=== PATIENT | female | born 1950 | race Caucasian/White ===

== ENCOUNTER 2018-04-16 06:12 | Day surgery (SDC) | payer OTHER ==
[~2018-04-16] VITALS: Ht 157.5 cm; Wt 103.4 kg
[~2018-04-16 06:12] MED LIST: AMLO5 PO; ATOR20 PO; CHLO25B PO; Curcumin1 GM PO; DULO60 PO; Excedrin Extra1 EACH PO; FENOFIBRATE40 MG PO; LOSA25 PO; METF500C PO; Novolog100 UNIT/1 SC; PROBIOTIC1 EAC3 PO; TRULICITY1.5 MG/0.5 SC; [UNRECOGNIZED DRUG - OTHER] PO
[2018-04-16] MEDS ORDERED: INSU100I6 SC (06:52)
[2018-04-16] MEDS ORDERED: INS70/30I SC (06:52)
[2018-04-17 04:40] LABS: BASOPHILS ABSOLUTE AUTO 0.02 K/mm3 (0.00-0.23); BASOPHILS PERCENT AUTO 0 % (0-2); EOSINOPHILS ABSOLUTE AUTO 0.19 K/mm3 (0.00-0.68); EOSINOPHILS PERCENT AUTO 2 % (0-6); Hematocrit 30.7 % (33.0-51.0); Hemoglobin 9.6 g/dL (11.5-16.0); IMMATURE GRAN ABSOLUTE AUTO 0.04 K/mm3 (0.00-0.10); IMMATURE GRAN PERCENT AUTO 0 % (0-1); LYMPHOCYTES ABSOLUTE AUTO 2.27 K/mm3 (0.84-5.20); LYMPHOCYTES PERCENT AUTO 19 % (21-46); MONOCYTES ABSOLUTE AUTO 0.85 K/mm3 (0.16-1.47); MONOCYTES PERCENT AUTO 7 % (4-13); Mean Corpuscular HGB 26.9 pg (26.0-34.0); Mean Corpuscular HGB Conc 31.3 g/dL (31.5-36.5); Mean Corpuscular Volume 86 fL (80-100); Mean Platelet Volume 9.5 fL (9.1-12.4); NEUTROPHILS ABSOLUTE AUTO 8.46 K/mm3 (1.96-9.15); NEUTROPHILS PERCENT AUTO 72 % (41-73); Platelet Count 263 K/mm3 (150-400); RDW Coefficient Variation 13.4 % (11.7-14.2); RDW Standard Deviation 42.3 fL (35.1-46.3); Red Blood Cell Count 3.57 M/mm3 (3.80-5.20); White Blood Cell Count 11.83 K/mm3 (4.00-11.30)
[2018-04-17 04:57] LABS: Anion Gap 8 mmol/L (6-16); Blood Urea Nitrogen 33 mg/dL (8-24); Bun/Creatinine Ratio 38.5 (12.0-20.0); CO2, Blood 27 mmol/L (21-32); Calcium, Blood 9.1 mg/dL (8.5-10.1); Chloride, Blood 102 mmol/L (98-108); Creatinine, Blood 0.86 mg/dL (0.40-1.00); Glomerular Filtration Rate >60 (60-); Glucose, Blood 118 mg/dL (70-99); Potassium, Blood 3.8 mmol/L (3.5-5.5); Sodium, Blood 137 mmol/L (136-145)
[2018-04-17] MEDS ORDERED: XARELTO10 MG PO (08:36)
[2018-04-17] MEDS ORDERED: Percocet 5-3251 EACH PO (08:40)
== END 2018-04-17 15:18 | disposition home or self-care (01) ==
LOC: ORSCMMR 06:12 → ORD 07:30 → SURS 10:36 → ORSCMMR 04-17 15:18
PROVIDERS: Orthopaedic Surgery
PROC: 0SRC0JA Replacement of Right Knee Joint with Synthetic Substitute, Uncemented, Open Approach (ICD-10-PCS; principal; 2018-04-16 07:30)
DX: M17.11 Unilateral primary osteoarthritis, right knee (principal); I10 Essential (primary) hypertension; G47.33 Obstructive sleep apnea (adult) (pediatric); Z87.891 Personal history of nicotine dependence; K21.9 Gastro-esophageal reflux disease without esophagitis; E11.9 Type 2 diabetes mellitus without complications; E66.01 Morbid (severe) obesity due to excess calories; Z68.41 Body mass index [BMI] 40.0-44.9, adult; Z79.899 Other long term (current) drug therapy
CPT/HCPCS: 36415; 73560-RT; 80048; 82947; 85025; 86850; 86870; 86900; 86901; 94762; 97110; 97116; 97150; 97162; C1776; G8978; G8979; J0171; J0330; J0690; J0735; J1815; J1885; J2250; J2405; J2550; J2765; J2795; J3010; J7120

== ENCOUNTER 2018-08-21 11:38 | Day surgery (SDC) | payer OTHER ==
[~2018-08-21] VITALS: Ht 157.5 cm; Wt 103.7 kg
[~2018-08-21 11:38] MED LIST changes: +INS70/30I SC; +INSU100I6 SC; +Percocet 5-3251 EACH PO; +XARELTO10 MG PO
[2018-08-21] MEDS ORDERED: FENOFIBRATE40 MG (12:19)
[2018-08-21] MEDS ORDERED: CHOL10002 (12:27)
[2018-08-21] MEDS ORDERED: ESOM20 (12:27)
[2018-08-21] MEDS ORDERED: UBID10 (12:27)
[2018-08-21] MEDS ORDERED: CYAN500 (12:27)
[2018-08-21] MEDS ORDERED: Hair, Skin & N1 EACH (12:27)
== END 2018-08-21 13:51 | disposition home or self-care (01) ==
LOC: ORSCSDS 11:38
PROVIDERS: Internal Medicine Gastroenterology
PROC: 0DB58ZX Excision of Esophagus, Via Natural or Artificial Opening Endoscopic, Diagnostic (ICD-10-PCS; principal; 2018-08-21 13:00)
DX: K22.70 Barrett's esophagus without dysplasia (principal); K44.9 Diaphragmatic hernia without obstruction or gangrene; G47.33 Obstructive sleep apnea (adult) (pediatric); I10 Essential (primary) hypertension; E11.9 Type 2 diabetes mellitus without complications; Z68.41 Body mass index [BMI] 40.0-44.9, adult; Z87.891 Personal history of nicotine dependence; Z79.82 Long term (current) use of aspirin; Z79.84 Long term (current) use of oral hypoglycemic drugs; Z79.4 Long term (current) use of insulin; Z79.899 Other long term (current) drug therapy
CPT/HCPCS: 82947; 88305; J7120

== ENCOUNTER → 2019-05-06 | Outpatient (CLI) | payer OTHER ==
[~2019-05-06] MED LIST changes: +CHOL10002; +CYAN500; +ESOM20; +FENOFIBRATE40 MG; +Hair, Skin & N1 EACH; +UBID10
[2019-05-06 18:01] LABS: Hematocrit 33.9 % (33.0-51.0); Hemoglobin 10.6 g/dL (11.5-16.0); Mean Corpuscular HGB 26.5 pg (26.0-34.0); Mean Corpuscular HGB Conc 31.3 g/dL (31.5-36.5); Mean Corpuscular Volume 85 fL (80-100); Mean Platelet Volume 10.3 fL (9.1-12.4); Platelet Count 322 K/mm3 (150-400); RDW Standard Deviation 43.3 fL (35.1-46.3)
[2019-05-08 01:06] LABS: HBSAG SCREEN Negative (Negative); HEP B CORE AB, TOT Negative (Negative); HEP C VIRUS AB <0.1 (0.0-0.9)
== END | disposition home or self-care (01) ==
LOC: LAB 14:00 → LAB SHORT 14:00
PROVIDERS: Internal Medicine
DX: Z11.59 Encounter for screening for other viral diseases (principal); E11.65 Type 2 diabetes mellitus with hyperglycemia; D50.8 Other iron deficiency anemias
CPT/HCPCS: 83036; 85027; 86704; 86708; 86803; 87340

== ENCOUNTER 2021-06-23 16:45 | Inpatient (IN) | payer OTHER ==
[~2021-06-23] VITALS: Ht 157.5 cm; Wt 107.6 kg
[2021-06-23 17:09] LABS: BASOPHILS ABSOLUTE AUTO 0.04 K/mm3 (0.00-0.23); BASOPHILS PERCENT AUTO 0 % (0-2); EOSINOPHILS ABSOLUTE AUTO 0.18 K/mm3 (0.00-0.68); EOSINOPHILS PERCENT AUTO 2 % (0-6); Hematocrit 35.2 % (33.0-51.0); Hemoglobin 11.2 g/dL (11.5-16.0); IMMATURE GRAN PERCENT AUTO 1 % (0-1); LYMPHOCYTES ABSOLUTE AUTO 2.63 K/mm3 (0.84-5.20); LYMPHOCYTES PERCENT AUTO 22 % (21-46); MONOCYTES ABSOLUTE AUTO 0.76 K/mm3 (0.16-1.47); MONOCYTES PERCENT AUTO 6 % (4-13); Mean Corpuscular HGB 27.5 pg (26.0-34.0); Mean Corpuscular HGB Conc 31.8 g/dL (31.5-36.5); Mean Corpuscular Volume 87 fL (80-100); Mean Platelet Volume 9.5 fL (9.1-12.4); NEUTROPHILS ABSOLUTE AUTO 8.38 K/mm3 (1.96-9.15); NEUTROPHILS PERCENT AUTO 69 % (41-73); Platelet Count 353 K/mm3 (150-400); RDW Standard Deviation 43.6 fL (35.1-46.3); Red Blood Cell Count 4.07 M/mm3 (3.80-5.20); White Blood Cell Count 12.09 K/mm3 (4.00-11.30)
[2021-06-23 17:28] LABS: Alanine Aminotransfer (ALT/SGP 38 U/L (12-78); Albumin, Blood 3.7 g/dL (3.4-5.0); Albumin/Globulin Ratio 0.9 (0.8-1.8); Alk Phos 77 U/L (50-136); Anion Gap 6 mmol/L (6-16); Aspartate Aminotrans (AST/SGOT 27 U/L (12-37); Bilirubin, Total 0.3 mg/dL (0.1-1.0); Blood Urea Nitrogen 24 mg/dL (8-24); Bun/Creatinine Ratio 27.7 (12.0-20.0); CO2, Blood 23 mmol/L (21-32); Calcium, Blood 9.8 mg/dL (8.5-10.1); Chloride, Blood 109 mmol/L (98-108); Creatinine, Blood 0.87 mg/dL (0.40-1.00); Glomerular Filtration Rate >60 (60-); Glucose, Blood 240 mg/dL (70-99); Sodium, Blood 138 mmol/L (136-145); Total Protein, Blood 7.7 g/dL (6.4-8.2)
[2021-06-23 18:24] LABS: International Normalized Ratio 1.02; Prothrombin Time Results 10.7 Sec (9.7-11.5)
[2021-06-23] MEDS ORDERED: EUTHYROX25 MCG PO (19:33)
[2021-06-23] MEDS ORDERED: MIRALAX17 GM PO (19:34)
[2021-06-23] MEDS ORDERED: POTA10T PO (19:35)
[2021-06-23] MEDS ORDERED: SENNA LAXATIVE8.6 MG PO (19:35)
[2021-06-23] MEDS ORDERED: QUET25 PO (19:35)
[2021-06-23] MEDS ORDERED: FENO160 PO (19:38)
[2021-06-23] MEDS ORDERED: AMLODIPINE BESY10 MG PO (19:38)
[2021-06-23] MEDS ORDERED: LIPITOR80 MG PO (19:38)
[2021-06-23] MEDS ORDERED: NEURONTIN300 MG PO (19:38)
[2021-06-23] MEDS ORDERED: LOSA50 PO (19:39)
[2021-06-23] MEDS ORDERED: NOVOLIN 70100 UNIT/3 SC (19:39)
[2021-06-23] MEDS ORDERED: METFORMIN HCL500 M3 PO (19:40)
[2021-06-23] MEDS ORDERED: TRULICITY4.5 MG/0.5 SC (19:40)
[2021-06-23] MEDS ORDERED: LOSARTAN POTAS100 M1 PO (19:44)
[2021-06-23 20:56] LABS: SARS-Cov-2 (COVID-19) PCR, MMC NEGATIVE (NEGATIVE)
--- NOTE | 2021-06-23 23:36 | NUR ---
PATIENT IS A NEW ADMIT FROM THE ED. ARRIVED VIA GURNEY AND SBA TRANSFER TO BED. ON ROOM AIR WITH SLURRED SPEECH/RS-FACIAL DROOP. DENIES CHEST PAIN, SOB, AND N/V. TELEMETRY PLACED AND TECH REPORTS NSR 88. HEAT AND VENT AIRCRAFT MECHANIC STRONG AND EQUAL. PUPILS EQUAL AND REACTIVE. LEG PEDAL PUSH/PULL STRONG AND EQUAL. PATIENT ORIENTED TO ROOM AND CALL LIGHT SYSTEM. REPORTS LIVES ALONE WITH DOGS IN [facility] IN [place].
--- NOTE | 2021-06-24 00:01 | NUR ---
RT NOTIFIED PATIENT USES CPAP THROUGH ORDER.
--- NOTE | 2021-06-24 03:28 | NUR ---
SHIFT SUMMARY PATIENT HAD NO ACUTE CHANGES OBSERVED. AXOX 4 WITH SLURRED SPEECH AND SLIGHT LS FACIAL DROOP. SBA TO BR. DENIES PAIN, SOB, AND N/V. ON ROOM AIR. MOVES ALL EXTREMITIES WELL. USING CPAP AT NIGHT SETUP BY RT. PIV REMAINS INTACT. PATIENT FINANCIAL SERVICES COORDINATOR REPORTS NSR 88. COOPERATIVE WITH CARE. ABLE TO SLEEP AFTER WATCHING TV. CALL LIGHT IN REACH. BED IN LOWEST POSITION. WILL CONTINUE TO MONITOR UNTIL DAY SHIFT NURSE ASSUMES CARE.
[2021-06-24 05:21] LABS: BASOPHILS ABSOLUTE AUTO 0.04 K/mm3 (0.00-0.23); BASOPHILS PERCENT AUTO 0 % (0-2); EOSINOPHILS ABSOLUTE AUTO 0.19 K/mm3 (0.00-0.68); EOSINOPHILS PERCENT AUTO 2 % (0-6); Hematocrit 34.3 % (33.0-51.0); IMMATURE GRAN ABSOLUTE AUTO 0.06 K/mm3 (0.00-0.10); IMMATURE GRAN PERCENT AUTO 1 % (0-1); LYMPHOCYTES ABSOLUTE AUTO 3.19 K/mm3 (0.84-5.20); LYMPHOCYTES PERCENT AUTO 25 % (21-46); MONOCYTES PERCENT AUTO 8 % (4-13); Mean Corpuscular HGB 27.5 pg (26.0-34.0); Mean Corpuscular HGB Conc 32.1 g/dL (31.5-36.5); Mean Corpuscular Volume 86 fL (80-100); Mean Platelet Volume 9.4 fL (9.1-12.4); NEUTROPHILS PERCENT AUTO 65 % (41-73); Platelet Count 315 K/mm3 (150-400); RDW Standard Deviation 43.3 fL (35.1-46.3); White Blood Cell Count 12.78 K/mm3 (4.00-11.30)
[2021-06-24 05:50] LABS: Alanine Aminotransfer (ALT/SGP 32 U/L (12-78); Albumin, Blood 3.4 g/dL (3.4-5.0); Albumin/Globulin Ratio 0.9 (0.8-1.8); Alk Phos 66 U/L (50-136); Anion Gap 5 mmol/L (6-16); Aspartate Aminotrans (AST/SGOT 19 U/L (12-37); Bilirubin, Total 0.3 mg/dL (0.1-1.0); Blood Urea Nitrogen 19 mg/dL (8-24); Bun/Creatinine Ratio 24.5 (12.0-20.0); CHOL/HDL RATIO 5.9; CO2, Blood 25 mmol/L (21-32); Calcium, Blood 9.4 mg/dL (8.5-10.1); Chloride, Blood 108 mmol/L (98-108); Cholesterol 182 mg/dL (50-200); Creatinine, Blood 0.78 mg/dL (0.40-1.00); Globulin, Blood 3.8 g/dL (2.2-4.0); Glomerular Filtration Rate >60 (60-); Glucose, Blood 196 mg/dL (70-99); HDL Cholesterol 31 mg/dL (>39); Low Density Lipoprotein Chol 94 mg/dL (0-110); Potassium, Blood 3.8 mmol/L (3.5-5.5); Sodium, Blood 138 mmol/L (136-145); Total Protein, Blood 7.2 g/dL (6.4-8.2); Triglycerides 286 mg/dL (30-160); Very Low Density Lipoprot Chol 57 mg/dL (6-32)
--- NOTE | 2021-06-24 11:31 | NUR ---
Patient is lying in bed and alert. Patient immediately tells me that she is scared and worried. Scared about what is happening to her physically (and the unknowns associated with that) and worried about what it might mean for her life (independence, sense of self and financially). Patient is tearful at times. She tells me about her support system of her sister (who lives in [place] who has come here to help her today), her son (who is a [employer] in the [employer] [facility] [employer]) and her two very large dogs. We also discuss her Jew shefali and the strength that she gains from it. I reinforce helpful attitudes and practices, normalize her experience and provide therapeutic listening and prayer. Patient responds well and shows signs of increased peace. I will continue to remain available to patient and family.
--- NOTE | 2021-06-24 18:42 | NUR ---
PATIENT IS ALERT AND ORIENTED X 4. REPORTS CHRONIC PAIN AND TX WITH GABAPENTIN. TYLENOL GIVEN X 1. SHE IS CALM AND VERY PLEASANT. SHE IS INDEPENDENT WITH ACTIVITIES. SHE HAS SOME SLURRED SPEECH AND TROUBLE FORMULATING HER WORDS AT TIME. MRI AND CT COMPLETED TODAY. PT IS NOT IN ACUTE DISTRESS. THIS SHIFT HAS BEEN UNEVENTFUL.
--- NOTE | 2021-06-25 04:03 | NUR ---
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 HEAD CT, HEAD MRI, CAROTID ART DUPLEX. 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 PT HAS INTENTION TREMORS PER HER REPORT SINCE AGE 12. pt ON PLAVIX BABY ASA LOVENOX ANTICOAGULANT.NO RT ARM OR LEG WEAKNESS. SLIGHT RT FACIAL DROOP, MILD WORD FINDING DIFFICULTY. CLEARED FOR ADA DIET BY SPEECH THERAPY. UP INDEP IN ROOM. USING HOSPITAL CPAP AT HS. ON TELE NSR. ON 70/30 INSULIN , TAKES WEEKLY ULTRA LONG ACTING ANTIDIABETIC AGENT SQ AT HOME.
[2021-06-25 05:08] LABS: BASOPHILS ABSOLUTE AUTO 0.03 K/mm3 (0.00-0.23); BASOPHILS PERCENT AUTO 0 % (0-2); EOSINOPHILS PERCENT AUTO 2 % (0-6); Hematocrit 35.8 % (33.0-51.0); Hemoglobin 11.4 g/dL (11.5-16.0); IMMATURE GRAN ABSOLUTE AUTO 0.04 K/mm3 (0.00-0.10); IMMATURE GRAN PERCENT AUTO 0 % (0-1); LYMPHOCYTES PERCENT AUTO 30 % (21-46); MONOCYTES ABSOLUTE AUTO 1.01 K/mm3 (0.16-1.47); MONOCYTES PERCENT AUTO 9 % (4-13); Mean Corpuscular HGB 27.4 pg (26.0-34.0); Mean Corpuscular HGB Conc 31.8 g/dL (31.5-36.5); Mean Corpuscular Volume 86 fL (80-100); Mean Platelet Volume 9.3 fL (9.1-12.4); NEUTROPHILS ABSOLUTE AUTO 6.72 K/mm3 (1.96-9.15); NEUTROPHILS PERCENT AUTO 59 % (41-73); Platelet Count 325 K/mm3 (150-400); RDW Coefficient Variation 14.2 % (11.7-14.2); RDW Standard Deviation 44.3 fL (35.1-46.3); Red Blood Cell Count 4.16 M/mm3 (3.80-5.20)
[2021-06-25] MEDS ORDERED: ASPI81CH PO (13:49)
[2021-06-25] MEDS ORDERED: CLOP75 PO (13:50)
== END 2021-06-25 15:23 | disposition home or self-care (01) | DRG 65 ==
LOC: ER 16:45 → MEDS 22:31
PROVIDERS: Emergency Medicine; Family Medicine; Student in an Organized Health Care Education/Training Program; ADMIT Internal Medicine
DX: I63.9 Cerebral infarction, unspecified (principal); Z68.41 Body mass index [BMI] 40.0-44.9, adult; I10 Essential (primary) hypertension; E11.9 Type 2 diabetes mellitus without complications; G89.29 Other chronic pain; E78.5 Hyperlipidemia, unspecified; G47.33 Obstructive sleep apnea (adult) (pediatric); Z20.822 Contact with and (suspected) exposure to COVID-19; Z23 Encounter for immunization; I65.02 Occlusion and stenosis of left vertebral artery; I65.23 Occlusion and stenosis of bilateral carotid arteries; R47.81 Slurred speech; E66.9 Obesity, unspecified; F32.A Depression, unspecified; F41.9 Anxiety disorder, unspecified; Z90.49 Acquired absence of other specified parts of digestive tract; Z96.651 Presence of right artificial knee joint; Z87.891 Personal history of nicotine dependence; Z79.899 Other long term (current) drug therapy; Z88.8 Allergy status to other drugs, medicaments and biological substances; Z88.7 Allergy status to serum and vaccine; Z79.4 Long term (current) use of insulin; R29.703 NIHSS score 3; R47.1 Dysarthria and anarthria
CPT/HCPCS: 36415; 70450; 70496; 70551; 80053; 80061; 82947; 83036; 85025; 85610; 92523; 92610; 93005; 93010; 93306; 93880; 94760; 97110; 97161; 97166; 99285-25; A9270; J1650; J1815; Q9967; U0004

== ENCOUNTER → 2021-12-09 | Outpatient (CLI) | payer OTHER ==
[~2021-12-09] MED LIST changes: +AMLODIPINE BESY10 MG PO; +ASPI81CH PO; +ATEN25; +CHLO25B; +CLOP75 PO; +Cymbalta20 MG; +EUTHYROX25 MCG PO; +FENO160 PO; +LIPITOR80 MG PO; +LOSA50 PO; +LOSARTAN POTAS100 M1 PO; +METFORMIN HCL500 M3 PO; +MIRALAX17 GM PO; +NEURONTIN300 MG PO; +NOVOLIN 70100 UNIT/3 SC; +Nexium10 MG; +POTA10T PO; +QUET25 PO; +SENNA LAXATIVE8.6 MG PO; +TRULICITY4.5 MG/0.5 SC
[2021-12-10 13:31] LABS: Stool Occult Bld Immuno 1 Negative (NEGATIVE)
== END ==
LOC: LAB SHORT 15:55
PROVIDERS: Internal Medicine
DX: D64.9 Anemia, unspecified (principal); Z79.899 Other long term (current) drug therapy
CPT/HCPCS: 82274

== ENCOUNTER → 2022-02-14 | Outpatient (CLI) | payer OTHER ==
[~2022-02-14] MED LIST changes: -ATEN25; -CHLO25B; -Cymbalta20 MG; -Nexium10 MG
[2022-02-14 19:18] LABS: Percent Saturation 23.4 % (15.0-50.0)
== END | disposition home or self-care (01) ==
LOC: LAB SHORT 11:00 → LAB 11:00
PROVIDERS: Internal Medicine Hematology & Oncology
DX: D50.0 Iron deficiency anemia secondary to blood loss (chronic) (principal)
CPT/HCPCS: 82728; 83540; 83550

== ENCOUNTER → 2022-04-05 | Outpatient (CLI) | payer OTHER ==
[2022-04-05 20:34] LABS: Percent Saturation 21.3 % (15.0-50.0)
[2022-04-05 20:48] LABS: Albumin, Blood 3.9 g/dL (3.4-5.0); Albumin/Globulin Ratio 1.1 (0.8-1.8); Bilirubin, Total 0.3 mg/dL (0.1-1.0); Bun/Creatinine Ratio 27.1 (12.0-20.0); Calcium, Blood 9.9 mg/dL (8.5-10.1); Creatinine, Blood 0.74 mg/dL (0.40-1.00); Globulin, Blood 3.4 g/dL (2.2-4.0); Phosphorus, Blood 2.6 mg/dL (2.5-4.9); Potassium, Blood 4.4 mmol/L (3.5-5.5); Total Protein, Blood 7.3 g/dL (6.4-8.2)
== END | disposition home or self-care (01) ==
LOC: LAB 11:44 → LAB SHORT 11:44
PROVIDERS: Internal Medicine Hematology & Oncology
DX: D50.0 Iron deficiency anemia secondary to blood loss (chronic) (principal)
CPT/HCPCS: 80053; 82728; 83540; 83550; 84100

== ENCOUNTER → 2022-05-11 | Outpatient (CLI) | payer OTHER ==
[2022-05-11 19:16] LABS: Percent Saturation 33.7 % (15.0-50.0)
== END | disposition home or self-care (01) ==
LOC: LAB SHORT 11:57
PROVIDERS: Internal Medicine Hematology & Oncology
DX: E53.8 Deficiency of other specified B group vitamins (principal); D50.0 Iron deficiency anemia secondary to blood loss (chronic)
CPT/HCPCS: 82607; 82728; 82746; 83540; 83550

== ENCOUNTER → 2022-11-02 | Outpatient (CLI) | payer OTHER ==
[~2022-11-02] MED LIST changes: +ATEN25; +CHLO25B; +Cymbalta20 MG; +Nexium10 MG
[2022-11-02 18:44] LABS: BASOPHILS ABSOLUTE AUTO 0.04 K/mm3 (0.00-0.23); BASOPHILS PERCENT AUTO 0 % (0-2); EOSINOPHILS ABSOLUTE AUTO 0.42 K/mm3 (0.00-0.68); EOSINOPHILS PERCENT AUTO 4 % (0-6); Hematocrit 34.9 % (33.0-51.0); Hemoglobin 11.6 g/dL (11.5-16.0); IMMATURE GRAN ABSOLUTE AUTO 0.07 K/mm3 (0.00-0.10); IMMATURE GRAN PERCENT AUTO 1 % (0-1); LYMPHOCYTES ABSOLUTE AUTO 2.72 K/mm3 (0.84-5.20); LYMPHOCYTES PERCENT AUTO 27 % (21-46); MONOCYTES ABSOLUTE AUTO 0.59 K/mm3 (0.16-1.47); MONOCYTES PERCENT AUTO 6 % (4-13); Mean Corpuscular HGB 30.6 pg (26.0-34.0); Mean Corpuscular HGB Conc 33.2 g/dL (31.5-36.5); Mean Corpuscular Volume 92 fL (80-100); Mean Platelet Volume 10.8 fL (9.1-12.4); NEUTROPHILS ABSOLUTE AUTO 6.44 K/mm3 (1.96-9.15); NEUTROPHILS PERCENT AUTO 63 % (41-73); Platelet Count 330 K/mm3 (150-400); RDW Coefficient Variation 12.9 % (11.7-14.2); RDW Standard Deviation 43.1 fL (35.1-46.3); Red Blood Cell Count 3.79 M/mm3 (3.80-5.20); White Blood Cell Count 10.28 K/mm3 (4.00-11.30)
[2022-11-02 19:45] LABS: Microalb/Creat Ratio UR, Rand 39.688 mg/g (0.000-30.000); Microalbumin, Random Urine 25.4 mg/L (0.000-20.000)
[2022-11-03 10:52] LABS: Alanine Aminotransfer (ALT/SGP 44 U/L (12-78); Albumin, Blood 3.8 g/dL (3.4-5.0); Albumin/Globulin Ratio 1.1 (0.8-1.8); Alk Phos 60 U/L (50-136); Anion Gap 5 mmol/L (6-16); Aspartate Aminotrans (AST/SGOT 26 U/L (12-37); Bilirubin, Total 0.3 mg/dL (0.1-1.0); Blood Urea Nitrogen 24 mg/dL (8-24); Bun/Creatinine Ratio 27.6 (12.0-20.0); CHOL/HDL RATIO 4.1; CO2, Blood 23 mmol/L (21-32); Calcium, Blood 9.6 mg/dL (8.5-10.1); Chloride, Blood 111 mmol/L (98-108); Cholesterol 152 mg/dL (50-200); Creatinine, Blood 0.87 mg/dL (0.40-1.00); Ferritin, Serum 157 ng/mL (8-252); Globulin, Blood 3.5 g/dL (2.2-4.0); Glomerular Filtration Rate 72 (60-); Glucose, Blood 111 mg/dL (70-99); HDL Cholesterol 37 mg/dL (>39); Iron Serum 81 ug/dL (50-170); LDL/HDL RATIO 1.8; Low Density Lipoprotein Chol 68 mg/dL (0-110); Percent Saturation 22.6 % (15.0-50.0); Potassium, Blood 4.3 mmol/L (3.5-5.5); Sodium, Blood 139 mmol/L (136-145); Total Iron Binding Capacity 358 ug/dL (250-450); Total Protein, Blood 7.3 g/dL (6.4-8.2); Triglycerides 236 mg/dL (30-160); Very Low Density Lipoprot Chol 47 mg/dL (6-32)
== END | disposition home or self-care (01) ==
LOC: LAB SHORT 14:00
PROVIDERS: Internal Medicine
DX: E11.65 Type 2 diabetes mellitus with hyperglycemia (principal); E78.5 Hyperlipidemia, unspecified; D50.8 Other iron deficiency anemias; I10 Essential (primary) hypertension
CPT/HCPCS: 80053; 80061; 82043; 82570; 82728; 83540; 83550; 84443; 85025

== ENCOUNTER → 2023-09-13 | Outpatient (CLI) | payer OTHER ==
[2023-09-13 19:55] LABS: BASOPHILS ABSOLUTE AUTO 0.03 K/mm3 (0.00-0.23); BASOPHILS PERCENT AUTO 0 % (0-2); EOSINOPHILS ABSOLUTE AUTO 0.14 K/mm3 (0.00-0.68); EOSINOPHILS PERCENT AUTO 1 % (0-6); Hematocrit 35.2 % (33.0-51.0); Hemoglobin 11.3 g/dL (11.5-16.0); IMMATURE GRAN ABSOLUTE AUTO 0.03 K/mm3 (0.00-0.10); IMMATURE GRAN PERCENT AUTO 0 % (0-1); LYMPHOCYTES ABSOLUTE AUTO 2.69 K/mm3 (0.84-5.20); LYMPHOCYTES PERCENT AUTO 28 % (21-46); MONOCYTES ABSOLUTE AUTO 0.53 K/mm3 (0.16-1.47); MONOCYTES PERCENT AUTO 6 % (4-13); Mean Corpuscular HGB 29.1 pg (26.0-34.0); Mean Corpuscular HGB Conc 32.1 g/dL (31.5-36.5); Mean Corpuscular Volume 91 fL (80-100); Mean Platelet Volume 10.5 fL (9.1-12.4); NEUTROPHILS ABSOLUTE AUTO 6.26 K/mm3 (1.96-9.15); NEUTROPHILS PERCENT AUTO 65 % (41-73); Platelet Count 355 K/mm3 (150-400); RDW Coefficient Variation 13.5 % (11.7-14.2); RDW Standard Deviation 45.1 fL (35.1-46.3); Red Blood Cell Count 3.88 M/mm3 (3.80-5.20); White Blood Cell Count 9.68 K/mm3 (4.00-11.30)
[2023-09-13 20:08] LABS: CHOL/HDL RATIO 5.1; Cholesterol 173 mg/dL (50-200); HDL Cholesterol 34 mg/dL (>39); LDL/HDL RATIO 2.5; Low Density Lipoprotein Chol 86 mg/dL (0-110); Triglycerides 263 mg/dL (30-160); Very Low Density Lipoprot Chol 52 mg/dL (6-32)
[2023-09-15 11:55] LABS: BILIRUBIN, TOTAL 0.2 mg/dL (0.0-1.2); CALCIUM, SERUM 10.1 mg/dL (8.7-10.3); CREATININE, SERUM 1.15 mg/dL (0.57-1.00); GLOBULIN, TOTAL 2.3 g/dL (1.5-4.5); POTASSIUM, SERUM 4.6 mmol/L (3.5-5.2); PROTEIN, TOTAL, SERUM 6.9 g/dL (6.0-8.5)
[2023-09-16 16:17] LABS: HIV 1,2 COMBO ANTIGEN/ANTIBODY Negative (Negative)
== END ==
LOC: LAB 18:37 → LAB SHORT 18:37
PROVIDERS: Family Medicine
DX: Z11.4 Encounter for screening for human immunodeficiency virus [HIV] (principal); I10 Essential (primary) hypertension
CPT/HCPCS: 80053; 80061; 85025; 87389

== ENCOUNTER → 2023-09-26 | Outpatient (CLI) | payer OTHER ==
[2023-09-26 19:48] LABS: Microalb/Creat Ratio UR, Rand 71.333 mg/g (0.000-30.000); Microalbumin, Random Urine 74.9 mg/L (0.000-20.000)
== END | disposition home or self-care (01) ==
LOC: LAB SHORT 15:10 → LAB 15:10
PROVIDERS: Family Medicine
DX: I10 Essential (primary) hypertension (principal)
CPT/HCPCS: 82043; 82570

== ENCOUNTER → 2025-03-27 | Outpatient (CLI) | payer OTHER ==
[2025-03-27 23:36] LABS: Creatinine, Urine Random 121.0 mg/dL (27.00-270.00); Microalb/Creat Ratio UR, Rand 20.992 mg/g (0.000-30.000); Microalbumin, Random Urine 25.4 mg/L (0.000-20.000)
== END ==
LOC: LAB SHORT 14:15 → LAB 14:15 → LAB FUT 12-22 13:40
PROVIDERS: Family Medicine
DX: E11.65 Type 2 diabetes mellitus with hyperglycemia (principal)
CPT/HCPCS: 82043; 82570

== ENCOUNTER 2025-04-21 08:33 | Day surgery (SDC) | payer OTHER ==
[~2025-04-21] VITALS: Ht 157.5 cm; Wt 91.9 kg
[2025-04-21] MEDS ORDERED: OZEMPIC0.25 MG/02 (09:53)
[2025-04-21 11:38] VITALS: BP 113/57
== END 2025-04-21 11:43 | disposition home or self-care (01) ==
LOC: ORSCSDS 08:33
PROVIDERS: Specialist
PROC: 0DB58ZX Excision of Esophagus, Via Natural or Artificial Opening Endoscopic, Diagnostic (ICD-10-PCS; 2025-04-21)
PROC: 0DB78ZX Excision of Stomach, Pylorus, Via Natural or Artificial Opening Endoscopic, Diagnostic (ICD-10-PCS; 2025-04-21)
PROC: 0D758ZZ Dilation of Esophagus, Via Natural or Artificial Opening Endoscopic (ICD-10-PCS; 2025-04-21)
PROC: 0DJ08ZZ Inspection of Upper Intestinal Tract, Via Natural or Artificial Opening Endoscopic (ICD-10-PCS; principal; 2025-04-21 10:45)
DX: K22.70 Barrett's esophagus without dysplasia (principal); K44.9 Diaphragmatic hernia without obstruction or gangrene; K21.9 Gastro-esophageal reflux disease without esophagitis; K25.9 Gastric ulcer, unspecified as acute or chronic, without hemorrhage or perforation; I10 Essential (primary) hypertension; G47.33 Obstructive sleep apnea (adult) (pediatric); E11.9 Type 2 diabetes mellitus without complications; E66.9 Obesity, unspecified; Z68.37 Body mass index [BMI] 37.0-37.9, adult; Z79.84 Long term (current) use of oral hypoglycemic drugs; Z79.899 Other long term (current) drug therapy
CPT/HCPCS: 82947; 88305; 88342; C1769; J2704; J7120